=== PATIENT | female | born 1985 | race Caucasian/White ===

== ENCOUNTER → 2021-04-27 | Outpatient (CLI) | payer OTHER ==
[~2021-04-27] MED LIST: HYDR-2761 PO; RIZA10TA PO
== END ==
LOC: LAB 10:50
PROVIDERS: ATTEND Surgery
DX: K43.2 Incisional hernia without obstruction or gangrene (principal); Z01.812 Encounter for preprocedural laboratory examination; Z20.822 Contact with and (suspected) exposure to COVID-19
CPT/HCPCS: U0003; U0005

== ENCOUNTER 2021-04-29 08:39 | Day surgery (SDC) | payer OTHER ==
[~2021-04-29] VITALS: Ht 170.2 cm; Wt 79.4 kg
[~2021-04-29 08:39] MED LIST changes: +ACETAMINOPHEN 500 MG TABLET PO PRN; +BUPIVACAINE-EPI 0.25% 30 ML VIAL KIT. ONE; -HYDR-2761 PO; -RIZA10TA PO
[2021-04-29] MEDS ORDERED: IV RINGERS,LACTATED 1000ML 1,000 ML IV SCH ×2 (09:30→10:30)
[2021-04-29] MEDS ORDERED: SEVOFLURANE 16 TO 30 MINUTES. IH ONE (09:40)
[2021-04-29] MEDS ORDERED: ROCURONIUM 100 MG/10 ML VIAL. ONE (09:40)
[2021-04-29] MEDS ORDERED: LIDOCAINE 2% PF 5 ML VIAL. ONE (09:40)
[2021-04-29] MEDS ORDERED: PROPOFOL 10 MG/ML (20ML) VIAL. IV ONE (09:40)
[2021-04-29] MEDS ORDERED: DEXAMETHASONE SOD PHOS 4 MG/ML VIAL ONE (09:40)
[2021-04-29] MEDS ORDERED: ONDANSETRON PF 4 MG/2 ML VIAL. ONE (09:40)
[2021-04-29] MEDS ORDERED: NEOSTIGMINE METHYLSULFATE 5 MG/5 ML SYRINGE. ONE (09:41)
[2021-04-29] MEDS ORDERED: fentaNYL PF VIAL 100 MCG/2 ML VIAL ONE ×2 (09:41→10:27)
[2021-04-29] MEDS ORDERED: MIDAZOLAM HCL/PF 2 MG/2 ML VIAL. ONE (09:41)
[2021-04-29] MEDS ORDERED: GLYCOPYRROLATE 1 MG/5 ML VIAL. ONE (09:42)
[2021-04-29] MEDS ORDERED: RIZA10TA PO (09:49)
[2021-04-29] MEDS ORDERED: BUPIVACAINE-EPI 0.25%-1:200000 MPF 30 ML VIAL. INJ ONE (10:00)
--- NOTE | 2021-04-29 10:22 | PDOC4 ---
Operative Note Operative Note Date: April 29, 2021 at 1020 Preoperative diagnosis: Umbilical hernia Postoperative diagnosis: Same Procedure: Umbilical hernia pair open Surgeon: Ba Specimen: Hernia sac with content Dictation: Patient is 35-year-old female has developed a hernia at her umbilicus post tubal ligation. Procedure of umbilical hernia repair was explained to the patient detail risk-benefit were also discussed occluding bleeding infection alternatives to this procedure also discussed with the patient who seemed to understand and gave a verbal written consent to have the procedure performed. Patient was taken to the operating room placed in the supine position general anesthesia was initiated once patient was sleeping intubated her abdomen was prepped and draped usual sterile fashion using ChloraPrep. Area just above the umbilicus was injected quarter percent Marcaine with epinephrine incision was made with 15 blade scalpel is carried down to the subcutaneous tissue using electrocautery right hemostasis the hernia sac was encountered it was excised at the fascial defect and sent for pathology the fascial defect was then closed with a [id number] 0 Vicryl suture. The umbilicus was tacked to the fascia with a 3-0 Vicryl interrupted suture and the skin was reapproximated for subcuticular Monocryl Mastisol Steri-Strips and island dressings were applied. Patient was awakened and extubated operating room taken to recovery in stable condition all sponge instrument needle counts listed as correct estimated blood loss 5 mL CHARLENE QUEZADA MD Apr 29, 2021 10:22
[2021-04-29] MEDS ORDERED: HYDR-2761 PO (10:23)
[2021-04-29] MEDS ORDERED: PHENYLEPHRINE in 0.9% NACL PF 1 MG/10 ML SYRINGE. IV ONE (10:24)
--- NOTE | 2021-04-29 10:25 | DISCH ---
DISCHARGE INSTRUCTIONS Condition on Discharge Condition on Discharge: Stable Activity After Discharge Activity Instructions for Disc: Avoid exertion Other activity instructions: No lifting more than 20 pounds for 2-week Diet after Discharge Diet after Discharge: Regular Wound Incision Care Other wound/incision instructi: Jeanie shower in 24-hour Contacting the DRJose after DC Call your doctor for: If your condition worsens Follow-Up Follow up with: Dr. Quezada in 2 weeks CHARLENE QUEZADA MD Apr 29, 2021 10:25
[2021-04-29] MEDS ORDERED: PROCHLORPERAZINE 10 MG/2 ML VIAL. ONE (10:27)
[2021-04-29] MEDS ORDERED: HYDROmorphone 2 MG/ML VIAL IVP PRN (10:30)
[2021-04-29] MEDS ORDERED: MORPHINE SULFATE 2 MG/ML INJ. IVP PRN (10:30)
[2021-04-29] MEDS ORDERED: PROCHLORPERAZINE 10 MG/2 ML VIAL. IVP PRN (10:30)
[2021-04-29] MEDS ORDERED: fentaNYL PF VIAL 100 MCG/2 ML VIAL IVP PRN (10:30)
[2021-04-29] MEDS: fentaNYL PF VIAL 100 MCG/2 ML VIAL IVP PRN ×2 (11:00→11:40)
[2021-04-29] MEDS ORDERED: HYDROcodone/APAP 5/325MG 1 TAB TABLET PO ONE (11:15)
[2021-04-29 12:20] VITALS: BP 109/70
--- NOTE | 2021-05-02 15:07 | PATHOLOGY ---
[facility] Accession Number: [id number] . 01 Material submitted: . umbilicus - UMBILICAL HERNIA SAC AND CONTENTS . 02 Diagnosis: Segment of mesothelial-lined fibromembranous and fibroadipose tissue, umbilical hernia repair: - Hernia sac. (JPM:tammy; 05/02/2021) MBR 05/02/2021 1206 Local . 02 Electronically signed: . Jona Scott MD, Pathologist NPI- [id number] . 01 Gross description: . Fixative: Formalin Labeled: Umbilical hernia sac Specimen received: Single fragment of pink-hennessy fibroadipose tissue Dimensions: 3.3 x 2.5 x 1.6 cm Abnormalities: None identified Submitted representatively in cassette A1. ([facility]; 04/29/2021) NRI/NRI 04/29/20212025 Local . 02 Pathologist provided ICD-10: K44.9 . 02 CPT . 912703 Specimen Comment: A courtesy copy of this report has been sent to [phone] Specimen Comment: Report sent to Specimen Comment: A duplicate report has been generated due to demographic updates. Performed at: 01 [facility] [address], [place] [id number] MD Ta Celestin MD Phone: [phone] Performed at: 02 [facility] [address], [place] [id number] MD Jona Scott MD Phone: [phone]
== END 2021-04-29 12:51 | disposition home or self-care (01) ==
LOC: SURG 08:39
PROVIDERS: ATTEND Surgery
DX: K44.9 Diaphragmatic hernia without obstruction or gangrene (principal); Z79.899 Other long term (current) drug therapy; Z98.51 Tubal ligation status; Z98.890 Other specified postprocedural states; Z88.0 Allergy status to penicillin
CPT/HCPCS: 49585; 81025; 88302; A4215; A4930; A6258; J0780; J1100; J1956; J2250; J2370; J2405; J2704; J2710; J3010; J3490